=== PATIENT | female | born 1975 | race Two or more races ===

== ENCOUNTER 2019-10-29 09:53 | Emergency (ER) | payer MEDICAID, OTHER ==
[~2019-10-29] VITALS: Ht 165.1 cm; Wt 76.4 kg
[~2019-10-29 09:53] MED LIST: CYCL-259; HYDR-3240 PO
--- NOTE | 2019-10-29 10:10 | NUR ---
SISTER AMY WOULD LIKE A CALL ABOUT DISPO.
--- NOTE | 2019-10-29 10:16 | NUR ---
PATIENT COMES IN TODAY WITH C/O OF FEELING HOT, DIARRHEA, GRANADOS, BACK AND CHEST PAIN THAT STARTED YESTERDAY. PATIENT DENIES ANY CLOSE SICK CONTACTS. VITAL SIGNS WITHIN NORMAL LIMITS. PROVIDER AT BEDSIDE FOR EVALUATION.
[2019-10-29] MEDS ORDERED: KETOROLAC 30 MG/1 ML IM ONE (10:30)
[2019-10-29] MEDS ORDERED: ACETAMINOPHEN 325 MG TABLET PO ONE (10:30)
[2019-10-29] MEDS ORDERED: ACETAMINOPHEN 325 MG TABLET ONE (10:53)
[2019-10-29] MEDS ORDERED: KETOROLAC 30 MG/1 ML ONE (10:53)
[2019-10-29 10:57] LABS: BASOPHILS # (AUTO) 0.02 x10^3/uL (0-0.1); BASOPHILS % (AUTO) 0 % (0-1); EOSINOPHILS # (AUTO) 0.01 x10^3/uL (0-0.4); EOSINOPHILS % (AUTO) 0 % (1-7); LYMPHOCYTES # (AUTO) 1.45 x10^3/uL (1-3.4); LYMPHOCYTES % (AUTO) 18 % (22-44); MD NO; MEAN CORPUSCULAR HEMOGLOBIN 30.3 pg (27.0-34.8); MEAN CORPUSCULAR HGB CONC 33.3 g/dL (32.4-35.8); MEAN CORPUSCULAR VOLUME 91.1 fL (80-100); MEAN PLATELET VOLUME 7.6 fL (7.4-10.4); MONOCYTES # (AUTO) 0.37 x10^3/uL (0.2-0.8); MONOCYTES % (AUTO) 5 % (2-9); NEUTROPHILS # (AUTO) 6.28 x10^3/uL (1.8-6.8); NEUTROPHILS % (AUTO) 77 % (42-75); PLATELET COUNT 277 x10^3/uL (130-400); RED CELL DISTRIBUTION WIDTH 13.8 % (9.6-15.2)
--- NOTE | 2019-10-29 10:57 | NUR ---
PATIENT MEDICATED PER eMAR, VITAL SIGNS WITHIN NORMAL LIMITS, NO FURTHER NEEDS AT THIS TIME.
[2019-10-29 11:04] LABS: ALBUMIN 3.5 g/dL (3.4-5.0); ANION GAP 7 mmol/L (5-15); CALCIUM 8.4 mg/dL (8.5-10.1); CHLORIDE 107 mmol/L (98-107)
[2019-10-29 11:12] LABS: ALANINE AMINOTRANSFERASE 82 U/L (12-78); ALKALINE PHOSPHATASE 68 U/L (45-117); BILIRUBIN,TOTAL 0.6 mg/dL (0.2-1.0); CREATININE 0.49 mg/dL (0.55-1.02); TOTAL PROTEIN 7.8 g/dL (6.4-8.2); TROPONIN I < 0.015 ng/mL (0.000-0.045)
[2019-10-29] MEDS ORDERED: CEFTRIAXONE PMX 1GM/50ML 50 ML ONE (11:35)
[2019-10-29] MEDS ORDERED: AZITHROMYCIN 500 MG in SODIUM CHLORIDE 0.9% 250 ML IVPB ONE (12:00)
[2019-10-29] MEDS ORDERED: SODIUM CHLORIDE 0.9% 1,000ML IVBOLUS ONE (12:00)
--- NOTE | 2019-10-29 12:03 | NUR ---
SIGNAL HELPER AT BEDSIDE DRAWING BLOOD CULTURES. 1 LITER BOLUS STARTED AND 1 GM ROCEPHIN HUNG. PATIENTS PAIN LEVEL IS DOWN TO 3/10. NO FURTHER NEEDS AT THIS TIME.
[2019-10-29] MEDS ORDERED: CEFTRIAXONE PMX 1GM/50ML 50 ML IVPB ONE (13:00)
--- NOTE | 2019-10-29 13:15 | NUR ---
ERMD at bedside to discuss poc/dc.
[2019-10-29 14:11] VITALS: BP 113/69
--- NOTE | 2019-10-29 14:22 | NUR ---
Patient given discharge instructions and they have confirmed that they understand the instructions, explained abx directions to patient. Patient ambulatory with steady gait.
== END 2019-10-29 14:23 | disposition home or self-care (01) ==
LOC: ED 11:05
DX: U07.1 COVID-19 (principal); J18.9 Pneumonia, unspecified organism; R00.0 Tachycardia, unspecified; R94.31 Abnormal electrocardiogram [ECG] [EKG]
CPT/HCPCS: 36415; 71045; 80053; 83605; 84484; 85025; 85379; 87040; 87635; 93005; 96365; 96367; 96372; 99285; J0456; J0696; J1885; J7030; J7050